=== PATIENT | male | born 1980 | race Caucasian/White ===

== ENCOUNTER 2019-03-29 15:44 | Emergency (ER) | payer OTHER, SELFPAY ==
[2019-03-29 15:48] VITALS: BP 151/103; PULSE 75; RESP 18; TEMP 36.3; O2SAT 99
--- NOTE | 2019-03-29 15:55 | ED.ABDPAIN ---
HPI - Abdominal Pain General Chief Complaint: Abdominal Pain Stated Complaint: severe right abdominal pain, cramps lower back Time Seen by Provider: 03/29/19 15:45 Source: patient and family Mode of arrival: ambulatory Limitations: no limitations History of Present Illness HPI narrative: 39-year-old male nonsmoker and otherwise healthy presents with and a chief complaint of severe right flank pain with radiation into the groin. He states it came on suddenly earlier today and radiates down into his scrotum. He denies any fever chills. He has had no trouble with bowel or bladder. He states there is no provocation or palliation of the pain. He has never had anything like this before. He denies any history of kidney stones. He has had nausea and vomiting associated with the pain. At baseline there is an achy deep pain followed by episodes of very intense burning and stabbing pain MD complaint: flank pain Onset (ago): hour(s) Pain Consistency: intermittent and colicky Location: RLQ and R flank Severity: moderate Quality: cramping, stabbing and aching Radiation: RLQ and R flank Relieving factors: nothing Exacerbating factors: nothing Associated symptoms: nausea and vomiting Related Data Previous Rx's Medication Instructions Recorded clotrimazole 1 % topical solution 1 applictn TOP BID #10 ml 07/18/18 diazepam 10 mg tablet 10 mg PO BEDTIME PRN #2 tab 07/18/18 hydrocodone-acetaminophen 1 tab PO Q4-6H PRN #10 tab 03/29/19 ketorolac 10 mg PO Q6H PRN #14 tab 03/29/19 ondansetron 4 mg PO TID-QID PRN #10 tab 03/29/19 tamsulosin [Flomax] 0.4 mg PO DAILY #10 cap 03/29/19 Allergies Allergy/AdvReac Type Severity Reaction Status Date / Time No Known Drug Allergies Allergy Verified 07/18/18 14:35 Review of Systems Constitutional Denies chills, Denies fever(s), Denies lethargy and Denies weakness Eyes Denies change in vision, Denies eye discharge, Denies irritation and Denies loss of vision ENT Ears, Nose, Mouth, and Throat: Denies change in voice, Denies neck pain and Denies sore throat Cardiovascular Denies chest pain, Denies irregular heart rhythm, Denies lightheadedness, Denies palpitations, Denies dyspnea, Denies dyspnea on exertion and Denies orthopnea Respiratory Denies cough, Denies dyspnea, Denies dyspnea on exertion and Denies wheezing Gastrointestinal Gastrointestinal: Reports abdominal pain, Denies change in bowel habits, Denies diarrhea, Denies nausea and Denies vomiting Genitourinary Denies hematuria, Reports flank pain, Denies urinary incontinence and Denies urinary urgency Musculoskeletal Denies neck pain Integumentary/Breasts Denies pruritus, Denies erythema, Denies rash and Denies wounds Neurologic Denies confusion, Denies loss of vision and Denies weakness Psychiatric Denies anxiety, Denies confusion, Denies depression, Denies homicidal ideation and Denies suicidal ideation Endocrine Denies palpitations Hematologic/Lymphatic Denies easy bruising Allergic/Immunologic Denies wheezing PFSH Medical History Ankle pain (Chronic 2014) Chronic back pain (Chronic 1999) Eczema (Chronic ~1989) Shoulder pain (Chronic 2001) Surgical History Anesthesia (Resolved) History of umbilical hernia repair (Resolved 10/2012) Status post hernia repair Family History Mother Cancer Social History marital status: Smoking Status: Never smoker alcohol intake: current (1-3 A WEEK ) substance use type: does not use Family History Mother Cancer Social History marital status: Smoking Status: Never smoker alcohol intake: current (1-3 A WEEK ) substance use type: does not use Exam Narrative Exam Narrative: GENERAL: 39M appears stated age, very uncomfortable, pacing HEAD: Atraumatic. Normocephalic. No temporal or scalp tenderness. EYES: Pupils equal round and reactive. Extraocular motions intact. No scleral icterus. No injection or drainage. ENT: Nose without bleeding, purulent drainage or septal hematoma. Throat without erythema, tonsillar hypertrophy or exudate. Uvula midline. Airway patent. NECK: Trachea midline. No JVD or lymphadenopathy. Supple, nontender, no meningeal signs. CARDIOVASCULAR: Regular rate and rhythm without murmurs, gallops, or rubs. RESPIRATORY: Clear to auscultation. Breath sounds equal bilaterally. No wheezes, rales, or rhonchi. GASTROINTESTINAL: Abdomen soft, non-tender, nondistended. No hepato-splenomegaly, or palpable masses. No guarding. EXTREMITIES: No clubbing, cyanosis, or edema. No joint tenderness, effusion, or edema noted. BACK: Nontender without deformity or crepitance. No flank tenderness. NEURO: AOx3. SKIN: No rash or erythema. Initial Vital Signs Initial Vital Signs: Vital Signs Temperature 97.3 F L 03/29/19 15:48 Pulse Rate 75 03/29/19 15:48 Respiratory Rate 18 03/29/19 15:48 Blood Pressure 151/103 H 03/29/19 15:48 Pulse Oximetry 99 03/29/19 15:48 Course Orders Ordered: Discontinued Medications Hydrocodone Bitart/Acetaminophen (Vicodin Prepack) 1 bottle MISC SEEINSTR ONE Stop: 03/29/19 18:16 Last Admin: 03/29/19 18:23 Dose: 1 bottle Hydromorphone HCl (Dilaudid) 0.5 mg IV NOW ONE Stop: 03/29/19 16:55 Last Admin: 03/29/19 17:05 Dose: 0.5 mg Sodium Chloride (Normal Saline 0.9%) 1,000 mls @ 1,000 mls/hr IV BOLUS ONE Stop: 03/29/19 17:15 Last Infusion: 03/29/19 17:44 Dose: 0 mls/hr Admin: 03/29/19 16:38 Dose: 1,000 mls/hr Lidocaine HCl 5.1 ml/ Sodium (Chloride) 55.1 mls @ 330.6 mls/hr IV NOW ONE Stop: 03/29/19 16:35 Last Infusion: 03/29/19 17:29 Dose: 0 mls/hr Admin: 03/29/19 17:05 Dose: 330.6 mls/hr Ketorolac Tromethamine (Toradol) 15 mg IV NOW ONE Stop: 03/29/19 16:17 Last Admin: 03/29/19 16:38 Dose: 15 mg Ondansetron HCl (Zofran Odt Prepack) 1 bottle MISC SEEINSTR ONE Stop: 03/29/19 18:16 Last Admin: 03/29/19 18:23 Dose: 1 bottle Vital Signs - 8 hr 03/29/19 15:48 Temperature 97.3 F L Pulse Rate 75 Respiratory Rate 18 Blood Pressure 151/103 H Pulse Oximetry 99 MDM - Abdominal Pain Lab Data Result diagrams: 03/29/19 16:00 03/29/19 16:00 Lab Results 03/29/19 03/29/19 03/29/19 Range/Units 16:00 16:00 16:00 WBC 6.6 (4.5-11.0) X10^3/uL RBC 4.81 (4.5-5.9) X10^6/uL Hgb 14.6 (13.5-17.5) g/dL Hct 42.2 (41-53) % MCV 87.7 (80-100) fL MCH 30.3 (26-34) PG MCHC 34.6 (30-36) % RDW 13.1 (11.6-14.8) % Plt Count 170 (150-400) X10^3/uL Neut % (Auto) 63.5 (50-75) % Lymph % (Auto) 19.5 L (25-40) % [place] % (Auto) 14.4 H (3-14) % Eos % (Auto) 2.3 (2-4) % Baso % (Auto) 0.3 (0-2) % Neut # (Auto) 4200 (7909-1609) /uL Lymph # (Auto) 1300 (7723-4021) /uL [place] # (Auto) 900 (0-900) /uL Eos # (Auto) 200 (0-450) /uL Baso # (Auto) 0 (0-100) /uL PT 10.2 (10.1-12.7) SECONDS INR 0.9 (0.9-1.3) APTT 29 (26.4-36.2) SECONDS Sodium 140 (137-145) mmol/L Potassium 3.5 (3.4-5.1) mmol/L Chloride 104 (98-107) mmol/L Carbon Dioxide 29 (22-32) mmol/L BUN 21 H (9-20) mg/dL Creatinine 0.70 (0.66-1.25) mg/dL Estimated GFR > 60.0 (>60) mL/min BUN/Creatinine Ratio 30.0 H (6-22) Glucose 118 H (70-100) mg/dL Calcium 9.2 (8.4-10.2) mg/dL Total Bilirubin 0.4 (0.2-1.3) mg/dL AST 26 (17-59) IU/L ALT 10 L (21-72) IU/L Alkaline Phosphatase 78 (38-126) U/L Total Protein 7.2 (6.3-8.2) g/dL Albumin 4.4 (3.5-5.0) g/dL Globulin 2.8 (1.7-4.1) g/dL Albumin/Globulin Ratio 1.6 (1.0-2.8) Lipase 69 (23-300) U/L Urine Color Urine Appearance Urine pH Ur Specific [place] Urine Protein Urine Glucose (UA) Urine Ketones Urine Occult Blood Urine Nitrate Urine Bilirubin Urine Urobilinogen Ur Leukocyte Esterase Urine RBC (0-5/HPF) Urine WBC (0-5/HPF) Amorphous Sediment Urine Bacteria (None) Ur Culture Indicated? 03/29/19 Range/Units 17:30 WBC (4.5-11.0) X10^3/uL RBC (4.5-5.9) X10^6/uL Hgb (13.5-17.5) g/dL Hct (41-53) % MCV (80-100) fL MCH (26-34) PG MCHC (30-36) % RDW (11.6-14.8) % Plt Count (150-400) X10^3/uL Neut % (Auto) (50-75) % Lymph % (Auto) (25-40) % [place] % (Auto) (3-14) % Eos % (Auto) (2-4) % Baso % (Auto) (0-2) % Neut # (Auto) (5492-6621) /uL Lymph # (Auto) (4829-0909) /uL [place] # (Auto) (0-900) /uL Eos # (Auto) (0-450) /uL Baso # (Auto) (0-100) /uL PT (10.1-12.7) SECONDS INR (0.9-1.3) APTT (26.4-36.2) SECONDS Sodium (137-145) mmol/L Potassium (3.4-5.1) mmol/L Chloride (98-107) mmol/L Carbon Dioxide (22-32) mmol/L BUN (9-20) mg/dL Creatinine (0.66-1.25) mg/dL Estimated GFR (>60) mL/min BUN/Creatinine Ratio (6-22) Glucose (70-100) mg/dL Calcium (8.4-10.2) mg/dL Total Bilirubin (0.2-1.3) mg/dL AST (17-59) IU/L ALT (21-72) IU/L Alkaline Phosphatase (38-126) U/L Total Protein (6.3-8.2) g/dL Albumin (3.5-5.0) g/dL Globulin (1.7-4.1) g/dL Albumin/Globulin Ratio (1.0-2.8) Lipase (23-300) U/L Urine Color Cancelled Urine Appearance Cancelled Urine pH Cancelled Ur Specific [place] Cancelled Urine Protein Cancelled Urine Glucose (UA) Cancelled Urine Ketones Cancelled Urine Occult Blood Cancelled Urine Nitrate Cancelled Urine Bilirubin Cancelled Urine Urobilinogen Cancelled Ur Leukocyte Esterase Cancelled Urine RBC 5-10/hpf H (0-5/HPF) Urine WBC None seen (0-5/HPF) Amorphous Sediment 1+ Urine Bacteria None seen (None) Ur Culture Indicated? Culture not indicate Point of care testing: Urine Dip Bedside Urine Glucose Negative Bedside Urine Bilirubin - Negative Bedside Urine Ketone +/- 5 Urine Specific [place] 1.020 Bedside Urine Occult Blood +++ Bedside Urine pH 6.5 Bedside Urine Protein +/- 15 Bedside Urine Urobilinogen +/- 1mg Bedside Urine Nitrite - Negative Bedside Urine Leukocytes - Negative Esterase Imaging Data CT scan - abdomen: Radiologist's impression: [address] [id number] [address] Scan Report Signed Patient: Luigi Lovett KMR#: [id number] : 1980Acct:[id number] Age/Sex: 39 / MDate of Service: 03/29/19 Loc: ED Accession Number: [id number] Procedure: CT kidney ureter bladder (KUB) Ordering Provider: Jose Lynn D.O. PROCEDURE: CT KIDNEY URETER BLADDER (KUB) INDICATIONS: severe R flank and groin pain TECHNIQUE: Noncontrast 5 mm thick sections acquired from the diaphragms to the symphysis. 5 mm thick coronal and sagittal reformats were then performed. For radiation dose reduction, the following was used: automated exposure control, adjustment of mA and/or kV according to patient size. COMPARISON: None. FINDINGS: Image quality: Diagnostic. Lung bases: Lung bases are clear. Heart size is normal. Urinary system: There is a 5 x 5 x 4 mm calculus identified at the vesicoureteral junction on the right with corresponding moderate hydroureter and mild right-sided hydronephrosis. No additional right nephroureteral lithiasis is evident. There is a small (3-4 mm) calculus evident within the left mid kidney. No hydronephrosis of the left kidney or hydroureter is evident. No left ureteral calculi are present. No bladder calculi are appreciated. Other solid organs: Liver is normal in size. Gallbladder is not enlarged or inflamed. Pancreas is normal in contours. Spleen is normal in size. No adrenal nodules. Peritoneum and bowel: Unenhanced bowel loops demonstrate normal wall thickness and caliber. No free fluid or air. No loculated fluid collections are evident. Moderate residual stool seen within the colon. The imaged portions of the appendix are within normal limits. The Nodes and vessels: No retroperitoneal or mesenteric adenopathy by size criteria. Aorta and inferior vena cava are normal in caliber. Abdominal wall: No ventral hernias. Other pelvic soft tissues: No free pelvic fluid. Small bilateral fat-containing inguinal hernias appear to be present. No pelvic adenopathy is evident. No free fluid or loculated fluid collections are identified. Bones: No suspicious bony lesions. No vertebral body compression fractures. IMPRESSION: 1. At least partially obstructing distal right ureteral calculus with corresponding mild to moderate hydroureter and hydronephrosis. 2. Nonobstructing left nephrolithiasis. No left-sided hydronephrosis. 3. Small bilateral fat-containing inguinal hernias. 4. No bowel obstruction. Dictated by: Lennox Carbajal M.D. on 03/29/2019 at 16:56 Approved by: Lennox Carbajal M.D. on 03/29/2019 at 16:59 Discharge Plan Departure Patient Disposition: Home Clinical Impression: Calculus of kidney Discharge Date/Time: 03/29/19 18:27 Interventions: ED Discharge Assessment Last Done: 03/29/19 18:27 Instructions: DI for Kidney Stones Activity Restrictions/Additional Instructions: *You have been diagnosed with [acute right-sided kidney stone] *What to do: *Take medications as directed *Follow up with your primary care provider in 2-3 days, call for an appointment. Let them know you were seen in the Emergency Department and that we ask that you be seen in follow up *Return to ER if you should have any new, worsening or concerning symptoms Prescriptions: New hydrocodone-acetaminophen 5-325 mg tablet 1 tab PO Q4-6H PRN (Reason: pain) Qty: 10 RF: 0 ketorolac 10 mg tablet 10 mg PO Q6H PRN (Reason: pain) Qty: 14 RF: 0 tamsulosin [Flomax] 0.4 mg capsule 0.4 mg PO DAILY Qty: 10 RF: 0 ondansetron 4 mg tablet,disintegrating 4 mg PO TID-QID PRN (Reason: nausea and vomiting) Qty: 10 RF: 0 No Action diazepam [Valium] 10 mg tablet 10 mg PO BEDTIME PRN (Reason: anxiety) Qty: 2 RF: 0 clotrimazole 1 % solution 1 applictn TOP BID Qty: 10 RF: 0 Referrals: Feliberto Rucker MD [Primary Care Provider] - Mohsen Lopez MD [Non-Staff] -
[2019-03-29 16:10] LABS: Add Manual Diff / Slide Review NO; Basophils Absolute Auto 0 /uL (0-100); Basophils Percent Auto 0.3 % (0-2); Eosinophils Absolute Auto 200 /uL (0-450); Eosinophils Percent Auto 2.3 % (2-4); Hematocrit 42.2 % (41-53); Hemoglobin 14.6 g/dL (13.5-17.5); Lymphocytes Absolute Auto 1300 /uL (1100-4500); Lymphocytes Percent Auto 19.5 % (25-40); Mean Corpuscular HGB Conc 34.6 % (30-36); Mean Corpuscular Hemoglobin 30.3 PG (26-34); Mean Corpuscular Volume 87.7 fL (80-100); Monocytes Absolute Auto 900 /uL (0-900); Monocytes Percent Auto 14.4 % (3-14); Neutrophils Absolute Auto 4200 /uL (1500-7000); Neutrophils Percent Auto 63.5 % (50-75); Platelet Count 170 X10^3/uL (150-400); Red Blood Cell Count 4.81 X10^6/uL (4.5-5.9); Red Cell Distribution Width 13.1 % (11.6-14.8); White Blood Cell Count 6.6 X10^3/uL (4.5-11.0)
[2019-03-29 16:18] LABS: INR 0.9 (0.9-1.3); Prothrombin Time 10.2 SECONDS (10.1-12.7)
[2019-03-29 16:21] LABS: PTT Partial Thromboplastin Tim 29 SECONDS (26.4-36.2)
[2019-03-29 16:26] LABS: Alanine Aminotransferase 10 IU/L (21-72); Albumin 4.4 g/dL (3.5-5.0); Albumin Globulin Ratio 1.6 (1.0-2.8); Alkaline Phosphatase 78 U/L (38-126); Aspartate Aminotransferase 26 IU/L (17-59); Bilirubin Total 0.4 mg/dL (0.2-1.3); Blood Urea Nitrogen 21 mg/dL (9-20); Calcium 9.2 mg/dL (8.4-10.2); Carbon Dioxide 29 mmol/L (22-32); Chloride 104 mmol/L (98-107); Estimated Glomerular Filt Rate > 60.0 mL/min (>60); Globulin 2.8 g/dL (1.7-4.1); Glucose 118 mg/dL (70-100); HEMOLYSIS 17 (0-50); Lipase 69 U/L (23-300); Potassium 3.5 mmol/L (3.4-5.1); Sodium 140 mmol/L (137-145); Total Protein 7.2 g/dL (6.3-8.2)
--- NOTE | 2019-03-29 16:34 | DI.CT.S_ITS ---
PROCEDURE: CT KIDNEY URETER BLADDER (KUB) INDICATIONS: severe R flank and groin pain TECHNIQUE: Noncontrast 5 mm thick sections acquired from the diaphragms to the symphysis. 5 mm thick coronal and sagittal reformats were then performed. For radiation dose reduction, the following was used: automated exposure control, adjustment of mA and/or kV according to patient size. COMPARISON: None. FINDINGS: Image quality: Diagnostic. Lung bases: Lung bases are clear. Heart size is normal. Urinary system: There is a 5 x 5 x 4 mm calculus identified at the vesicoureteral junction on the right with corresponding moderate hydroureter and mild right-sided hydronephrosis. No additional right nephroureteral lithiasis is evident. There is a small (3-4 mm) calculus evident within the left mid kidney. No hydronephrosis of the left kidney or hydroureter is evident. No left ureteral calculi are present. No bladder calculi are appreciated. Other solid organs: Liver is normal in size. Gallbladder is not enlarged or inflamed. Pancreas is normal in contours. Spleen is normal in size. No adrenal nodules. Peritoneum and bowel: Unenhanced bowel loops demonstrate normal wall thickness and caliber. No free fluid or air. No loculated fluid collections are evident. Moderate residual stool seen within the colon. The imaged portions of the appendix are within normal limits. The Nodes and vessels: No retroperitoneal or mesenteric adenopathy by size criteria. Aorta and inferior vena cava are normal in caliber. Abdominal wall: No ventral hernias. Other pelvic soft tissues: No free pelvic fluid. Small bilateral fat-containing inguinal hernias appear to be present. No pelvic adenopathy is evident. No free fluid or loculated fluid collections are identified. Bones: No suspicious bony lesions. No vertebral body compression fractures. IMPRESSION: 1. At least partially obstructing distal right ureteral calculus with corresponding mild to moderate hydroureter and hydronephrosis. 2. Nonobstructing left nephrolithiasis. No left-sided hydronephrosis. 3. Small bilateral fat-containing inguinal hernias. 4. No bowel obstruction. Dictated by: Lennox Carbajal M.D. on 03/29/2019 at 16:56 Approved by: Lennox Carbajal M.D. on 03/29/2019 at 16:59
[2019-03-29] MEDS: SODIUM CHLORIDE 0.9% 1,000 ML 1000 ML IV (16:38)
[2019-03-29] MEDS: KETOROLAC 60 MG/2 ML VIAL 15 MG IV (16:38)
--- NOTE | 2019-03-29 17:03 | ED_ITS ---
HPI - Abdominal Pain General Chief Complaint: Abdominal Pain Stated Complaint: severe right abdominal pain, cramps lower back Time Seen by Provider: 03/29/19 15:45 Source: patient and family Mode of arrival: ambulatory Limitations: no limitations History of Present Illness HPI narrative: 39-year-old male nonsmoker and otherwise healthy presents with and a chief complaint of severe right flank pain with radiation into the groin. He states it came on suddenly earlier today and radiates down into his scrotum. He denies any fever chills. He has had no trouble with bowel or bladder. He states there is no provocation or palliation of the pain. He has never had anything like this before. He denies any history of kidney stones. He has had nausea and vomiting associated with the pain. At baseline there is an achy deep pain followed by episodes of very intense burning and stabbing pain MD complaint: flank pain Onset (ago): hour(s) Pain Consistency: intermittent and colicky Location: RLQ and R flank Severity: moderate Quality: cramping, stabbing and aching Radiation: RLQ and R flank Relieving factors: nothing Exacerbating factors: nothing Associated symptoms: nausea and vomiting Related Data Previous Rx's Medication Instructions Recorded clotrimazole 1 % topical solution 1 applictn TOP BID #10 ml 07/18/18 diazepam 10 mg tablet 10 mg PO BEDTIME PRN #2 tab 07/18/18 hydrocodone-acetaminophen 1 tab PO Q4-6H PRN #10 tab 03/29/19 ketorolac 10 mg PO Q6H PRN #14 tab 03/29/19 ondansetron 4 mg PO TID-QID PRN #10 tab 03/29/19 tamsulosin [Flomax] 0.4 mg PO DAILY #10 cap 03/29/19 Allergies Allergy/AdvReac Type Severity Reaction Status Date / Time No Known Drug Allergies Allergy Verified 07/18/18 14:35 Review of Systems Constitutional Denies chills, Denies fever(s), Denies lethargy and Denies weakness Eyes Denies change in vision, Denies eye discharge, Denies irritation and Denies loss of vision ENT Ears, Nose, Mouth, and Throat: Denies change in voice, Denies neck pain and Denies sore throat Cardiovascular Denies chest pain, Denies irregular heart rhythm, Denies lightheadedness, Denies palpitations, Denies dyspnea, Denies dyspnea on exertion and Denies orthopnea Respiratory Denies cough, Denies dyspnea, Denies dyspnea on exertion and Denies wheezing Gastrointestinal Gastrointestinal: Reports abdominal pain, Denies change in bowel habits, Denies diarrhea, Denies nausea and Denies vomiting Genitourinary Denies hematuria, Reports flank pain, Denies urinary incontinence and Denies urinary urgency Musculoskeletal Denies neck pain Integumentary/Breasts Denies pruritus, Denies erythema, Denies rash and Denies wounds Neurologic Denies confusion, Denies loss of vision and Denies weakness Psychiatric Denies anxiety, Denies confusion, Denies depression, Denies homicidal ideation and Denies suicidal ideation Endocrine Denies palpitations Hematologic/Lymphatic Denies easy bruising Allergic/Immunologic Denies wheezing PFSH Medical History Ankle pain (Chronic 2014) Chronic back pain (Chronic 1999) Eczema (Chronic ~1989) Shoulder pain (Chronic 2001) Surgical History Anesthesia (Resolved) History of umbilical hernia repair (Resolved 10/2012) Status post hernia repair Family History Mother Cancer Social History marital status: Smoking Status: Never smoker alcohol intake: current (1-3 A WEEK ) substance use type: does not use Family History Mother Cancer Social History marital status: Smoking Status: Never smoker alcohol intake: current (1-3 A WEEK ) substance use type: does not use Exam Narrative Exam Narrative: GENERAL: 39M appears stated age, very uncomfortable, pacing HEAD: Atraumatic. Normocephalic. No temporal or scalp tenderness. EYES: Pupils equal round and reactive. Extraocular motions intact. No scleral icterus. No injection or drainage. ENT: Nose without bleeding, purulent drainage or septal hematoma. Throat without erythema, tonsillar hypertrophy or exudate. Uvula midline. Airway patent. NECK: Trachea midline. No JVD or lymphadenopathy. Supple, nontender, no meningeal signs. CARDIOVASCULAR: Regular rate and rhythm without murmurs, gallops, or rubs. RESPIRATORY: Clear to auscultation. Breath sounds equal bilaterally. No wheezes, rales, or rhonchi. GASTROINTESTINAL: Abdomen soft, non-tender, nondistended. No hepato- splenomegaly, or palpable masses. No guarding. EXTREMITIES: No clubbing, cyanosis, or edema. No joint tenderness, effusion, or edema noted. BACK: Nontender without deformity or crepitance. No flank tenderness. NEURO: AOx3. SKIN: No rash or erythema. Initial Vital Signs Initial Vital Signs: Vital Signs Temperature 97.3 F L 03/29/19 15:48 Pulse Rate 75 03/29/19 15:48 Respiratory Rate 18 03/29/19 15:48 Blood Pressure 151/103 H 03/29/19 15:48 Pulse Oximetry 99 03/29/19 15:48 Course Orders Ordered: Discontinued Medications Hydrocodone Bitart/Acetaminophen (Vicodin Prepack) 1 bottle MISC SEEINSTR ONE Stop: 03/29/19 18:16 Last Admin: 03/29/19 18:23 Dose: 1 bottle Hydromorphone HCl (Dilaudid) 0.5 mg IV NOW ONE Stop: 03/29/19 16:55 Last Admin: 03/29/19 17:05 Dose: 0.5 mg Sodium Chloride (Normal Saline 0.9%) 1,000 mls @ 1,000 mls/hr IV BOLUS ONE Stop: 03/29/19 17:15 Last Infusion: 03/29/19 17:44 Dose: 0 mls/hr Admin: 03/29/19 16:38 Dose: 1,000 mls/hr Lidocaine HCl 5.1 ml/ Sodium (Chloride) 55.1 mls @ 330.6 mls/hr IV NOW ONE Stop: 03/29/19 16:35 Last Infusion: 03/29/19 17:29 Dose: 0 mls/hr Admin: 03/29/19 17:05 Dose: 330.6 mls/hr Ketorolac Tromethamine (Toradol) 15 mg IV NOW ONE Stop: 03/29/19 16:17 Last Admin: 03/29/19 16:38 Dose: 15 mg Ondansetron HCl (Zofran Odt Prepack) 1 bottle MISC SEEINSTR ONE Stop: 03/29/19 18:16 Last Admin: 03/29/19 18:23 Dose: 1 bottle Vital Signs - 8 hr 03/29/19 15:48 Temperature 97.3 F L Pulse Rate 75 Respiratory Rate 18 Blood Pressure 151/103 H Pulse Oximetry 99 MDM - Abdominal Pain Lab Data Result diagrams: 03/29/19 16:00 03/29/19 16:00 Lab Results 03/29/19 03/29/19 03/29/19 Range/Units 16:00 16:00 16:00 WBC 6.6 (4.5-11.0) X10^3/uL RBC 4.81 (4.5-5.9) X10^6/uL Hgb 14.6 (13.5-17.5) g/dL Hct 42.2 (41-53) % MCV 87.7 (80-100) fL MCH 30.3 (26-34) PG MCHC 34.6 (30-36) % RDW 13.1 (11.6-14.8) % Plt Count 170 (150-400) X10^3/uL Neut % (Auto) 63.5 (50-75) % Lymph % (Auto) 19.5 L (25-40) % [place] % (Auto) 14.4 H (3-14) % Eos % (Auto) 2.3 (2-4) % Baso % (Auto) 0.3 (0-2) % Neut # (Auto) 4200 (7965-1593) /uL Lymph # (Auto) 1300 (6523-9613) /uL [place] # (Auto) 900 (0-900) /uL Eos # (Auto) 200 (0-450) /uL Baso # (Auto) 0 (0-100) /uL PT 10.2 (10.1-12.7) SECONDS INR 0.9 (0.9-1.3) APTT 29 (26.4-36.2) SECONDS Sodium 140 (137-145) mmol/L Potassium 3.5 (3.4-5.1) mmol/L Chloride 104 (98-107) mmol/L Carbon Dioxide 29 (22-32) mmol/L BUN 21 H (9-20) mg/dL Creatinine 0.70 (0.66-1.25) mg/dL Estimated GFR > 60.0 (>60) mL/min BUN/Creatinine Ratio 30.0 H (6-22) Glucose 118 H (70-100) mg/dL Calcium 9.2 (8.4-10.2) mg/dL Total Bilirubin 0.4 (0.2-1.3) mg/dL AST 26 (17-59) IU/L ALT 10 L (21-72) IU/L Alkaline Phosphatase 78 (38-126) U/L Total Protein 7.2 (6.3-8.2) g/dL Albumin 4.4 (3.5-5.0) g/dL Globulin 2.8 (1.7-4.1) g/dL Albumin/Globulin Ratio 1.6 (1.0-2.8) Lipase 69 (23-300) U/L Urine Color Urine Appearance Urine pH Ur Specific [place] Urine Protein Urine Glucose (UA) Urine Ketones Urine Occult Blood Urine Nitrate Urine Bilirubin Urine Urobilinogen Ur Leukocyte Esterase Urine RBC (0-5/HPF) Urine WBC (0-5/HPF) Amorphous Sediment Urine Bacteria (None) Ur Culture Indicated? 03/29/19 Range/Units 17:30 WBC (4.5-11.0) X10^3/uL RBC (4.5-5.9) X10^6/uL Hgb (13.5-17.5) g/dL Hct (41-53) % MCV (80-100) fL MCH (26-34) PG MCHC (30-36) % RDW (11.6-14.8) % Plt Count (150-400) X10^3/uL Neut % (Auto) (50-75) % Lymph % (Auto) (25-40) % [place] % (Auto) (3-14) % Eos % (Auto) (2-4) % Baso % (Auto) (0-2) % Neut # (Auto) (1005-4044) /uL Lymph # (Auto) (3262-7194) /uL [place] # (Auto) (0-900) /uL Eos # (Auto) (0-450) /uL Baso # (Auto) (0-100) /uL PT (10.1-12.7) SECONDS INR (0.9-1.3) APTT (26.4-36.2) SECONDS Sodium (137-145) mmol/L Potassium (3.4-5.1) mmol/L Chloride (98-107) mmol/L Carbon Dioxide (22-32) mmol/L BUN (9-20) mg/dL Creatinine (0.66-1.25) mg/dL Estimated GFR (>60) mL/min BUN/Creatinine Ratio (6-22) Glucose (70-100) mg/dL Calcium (8.4-10.2) mg/dL Total Bilirubin (0.2-1.3) mg/dL AST (17-59) IU/L ALT (21-72) IU/L Alkaline Phosphatase (38-126) U/L Total Protein (6.3-8.2) g/dL Albumin (3.5-5.0) g/dL Globulin (1.7-4.1) g/dL Albumin/Globulin Ratio (1.0-2.8) Lipase (23-300) U/L Urine Color Cancelled Urine Appearance Cancelled Urine pH Cancelled Ur Specific [place] Cancelled Urine Protein Cancelled Urine Glucose (UA) Cancelled Urine Ketones Cancelled Urine Occult Blood Cancelled Urine Nitrate Cancelled Urine Bilirubin Cancelled Urine Urobilinogen Cancelled Ur Leukocyte Esterase Cancelled Urine RBC 5-10/hpf H (0-5/HPF) Urine WBC None seen (0-5/HPF) Amorphous Sediment 1+ Urine Bacteria None seen (None) Ur Culture Indicated? Culture not indicate Point of care testing: Urine Dip Bedside Urine Glucose Negative Bedside Urine Bilirubin - Negative Bedside Urine Ketone +/- 5 Urine Specific [place] 1.020 Bedside Urine Occult Blood +++ Bedside Urine pH 6.5 Bedside Urine Protein +/- 15 Bedside Urine Urobilinogen +/- 1mg Bedside Urine Nitrite - Negative Bedside Urine Leukocytes - Negative Esterase Imaging Data CT scan - abdomen: Radiologist's impression: [address] [address] [address] Scan Report Signed Patient: Luigi Lovett KMR#: [id number] : 1980Acct:[id number] Age/Sex: 39 / MDate of Service: 03/29/19 Loc: ED Accession Number: [id number] Procedure: CT kidney ureter bladder (KUB) Ordering Provider: Jose Lynn D.O. PROCEDURE: CT KIDNEY URETER BLADDER (KUB) INDICATIONS: severe R flank and groin pain TECHNIQUE: Noncontrast 5 mm thick sections acquired from the diaphragms to the symphysis. 5 mm thick coronal and sagittal reformats were then performed. For radiation dose reduction, the following was used: automated exposure control, adjustment of mA and/or kV according to patient size. COMPARISON: None. FINDINGS: Image quality: Diagnostic. Lung bases: Lung bases are clear. Heart size is normal. Urinary system: There is a 5 x 5 x 4 mm calculus identified at the vesicoureteral junction on the right with corresponding moderate hydroureter and mild right- sided hydronephrosis. No additional right nephroureteral lithiasis is evident. There is a small (3-4 mm) calculus evident within the left mid kidney. No hydronephrosis of the left kidney or hydroureter is evident. No left ureteral calculi are present. No bladder calculi are appreciated. Other solid organs: Liver is normal in size. Gallbladder is not enlarged or inflamed. Pancreas is normal in contours. Spleen is normal in size. No adrenal nodules. Peritoneum and bowel: Unenhanced bowel loops demonstrate normal wall thickness and caliber. No free fluid or air. No loculated fluid collections are evident. Moderate residual stool seen within the colon. The imaged portions of the appendix are within normal limits. The Nodes and vessels: No retroperitoneal or mesenteric adenopathy by size criteria. Aorta and inferior vena cava are normal in caliber. Abdominal wall: No ventral hernias. Other pelvic soft tissues: No free pelvic fluid. Small bilateral fat-containing inguinal hernias appear to be present. No pelvic adenopathy is evident. No free fluid or loculated fluid collections are identified. Bones: No suspicious bony lesions. No vertebral body compression fractures. IMPRESSION: 1. At least partially obstructing distal right ureteral calculus with corresponding mild to moderate hydroureter and hydronephrosis. 2. Nonobstructing left nephrolithiasis. No left-sided hydronephrosis. 3. Small bilateral fat-containing inguinal hernias. 4. No bowel obstruction. Dictated by: Lennox aCrbajal M.D. on 03/29/2019 at 16:56 Approved by: Lennox Carbajal M.D. on 03/29/2019 at 16:59 Discharge Plan Departure Patient Disposition: Home Clinical Impression: Calculus of kidney Discharge Date/Time: 03/29/19 18:27 Interventions: ED Discharge Assessment Last Done: 03/29/19 18:27 Instructions: DI for Kidney Stones Activity Restrictions/Additional Instructions: *You have been diagnosed with [acute right-sided kidney stone] *What to do: *Take medications as directed *Follow up with your primary care provider in 2-3 days, call for an appointment. Let them know you were seen in the Emergency Department and that we ask that you be seen in follow up *Return to ER if you should have any new, worsening or concerning symptoms Prescriptions: New hydrocodone-acetaminophen 5-325 mg tablet 1 tab PO Q4-6H PRN (Reason: pain) Qty: 10 RF: 0 ketorolac 10 mg tablet 10 mg PO Q6H PRN (Reason: pain) Qty: 14 RF: 0 tamsulosin [Flomax] 0.4 mg capsule 0.4 mg PO DAILY Qty: 10 RF: 0 ondansetron 4 mg tablet,disintegrating 4 mg PO TID-QID PRN (Reason: nausea and vomiting) Qty: 10 RF: 0 No Action diazepam [Valium] 10 mg tablet 10 mg PO BEDTIME PRN (Reason: anxiety) Qty: 2 RF: 0 clotrimazole 1 % solution 1 applictn TOP BID Qty: 10 RF: 0 Referrals: Feliberto Rucker MD [Primary Care Provider] - Mohsen Lopez MD [Non-Staff] -
[2019-03-29] MEDS: HYDROMORPHONE 0.5 MG INJ IV (17:05)
[2019-03-29] MEDS: LIDOCAINE 2% 5.1 ML in SODIUM CHLORIDE 0.9% 50 ML 330.6 ML IV (17:05)
[2019-03-29] MEDS: HYDROCODONE/ACET 5/325 PREPACK 1 BOTTLE MISC (18:23)
[2019-03-29] MEDS: ONDANSETRON 4 MG ODT PREPACK 1 BOTTLE MISC (18:23)
[2019-03-29 18:27] VITALS: PULSE 75; RESP 16
[2019-03-29 20:03] LABS: Bacteria Urine None Seen; WBC Urine None Seen (0-5/HPF)
[2019-03-29 20:24] LABS: Amorphous Sediment Urine 1+; RBC Urine 5-10/HPF (0-5/HPF)
== END 2019-03-29 18:27 | disposition home or self-care (01) ==
PROVIDERS: Internal Medicine; Emergency Provider Emergency Medicine; PCP Family Medicine
DX: N20.0 Calculus of kidney (principal)
CPT/HCPCS: 36591; 74176; 80053; 81003; 81015; 83690; 85025; 85610; 85730; 87086; 96365; 96375; 99283; 99284; J1170; J1885

== ENCOUNTER 2019-03-30 01:39 | Emergency (ER) | payer OTHER, SELFPAY ==
--- NOTE | 2019-03-30 01:45 | ED_ITS ---
HPI - General Adult General Chief complaint: Urogenital-Male Stated complaint: kidney stones Time Seen by Provider: 03/30/19 01:43 Source: patient Mode of arrival: ambulatory Limitations: no limitations History of Present Illness HPI narrative: 39-year-old male here for evaluation of right-sided renal stone pain. Patient states that his symptoms started yesterday. He was seen here in the emergency department yesterday. Was diagnosed with a right-sided renal colic. Was sent home with pain medication. Returns this evening for continued pain. He states that it has moved lower into his right side of his abdomen. Has had vomiting. His medications at home have not been treating his symptoms. He denies any urinary symptoms. He is still urinating. No fevers. Related Data Previous Rx's Medication Instructions Recorded clotrimazole 1 % topical solution 1 applictn TOP BID #10 ml 07/18/18 diazepam 10 mg tablet 10 mg PO BEDTIME PRN #2 tab 07/18/18 hydrocodone-acetaminophen 1 tab PO Q4-6H PRN #10 tab 03/29/19 ketorolac 10 mg PO Q6H PRN #14 tab 03/29/19 ondansetron 4 mg PO TID-QID PRN #10 tab 03/29/19 tamsulosin [Flomax] 0.4 mg PO DAILY #10 cap 03/29/19 Allergies Allergy/AdvReac Type Severity Reaction Status Date / Time No Known Drug Allergies Allergy Verified 07/18/18 14:35 Review of Systems Constitutional Denies fever(s) Cardiovascular Denies chest pain and Denies dyspnea Respiratory Denies dyspnea Gastrointestinal Gastrointestinal: Reports abdominal pain and Reports nausea Genitourinary Denies dysuria and Reports urinary frequency Musculoskeletal Denies myalgias and Denies arthralgias Integumentary/Breasts Denies rash Hematologic/Lymphatic Denies easy bleeding and Denies easy bruising [facility] Medical History Ankle pain (Chronic 2014) Chronic back pain (Chronic 1999) Eczema (Chronic ~1989) Shoulder pain (Chronic 2001) Social History marital status: Smoking Status: Never smoker alcohol intake: current (1-3 A WEEK ) substance use type: does not use Exam Initial Vital Signs Initial Vital Signs: Vital Signs Temperature 98.4 F 03/30/19 02:01 Pulse Rate 73 03/30/19 02:01 Respiratory Rate 20 03/30/19 02:01 Blood Pressure 121/63 03/30/19 02:01 Pulse Oximetry 100 03/30/19 02:01 Const General: cooperative, well developed and well groomed Orientation: alert, awake and oriented x3 HENMT Head: normal to inspection and normocephalic Resp Effort & Inspection: normal respiratory effort Cardio Rate: regular rate GI Inspection: non-distended Skin Lesions: no lesions Rashes: no rashes Neuro General: alert and awake Cognition: normal cognition Speech: speech normal Extrem General: normal to inspection Psych Appearance: grossly normal and well kempt Course Orders Ordered: ED Orders 03/30/19 01:56 Basic Metabolic Panel Stat Complete Blood Count AUTO DIFF Stat 03/30/19 03:15 Urine Microscopic Stat Discontinued Medications Hydromorphone HCl (Dilaudid) 1 mg IV NOW ONE Stop: 03/30/19 01:49 Last Admin: 03/30/19 02:00 Dose: 1 mg Hydromorphone HCl (Dilaudid) 1 mg IV NOW ONE Stop: 03/30/19 02:11 Last Admin: 03/30/19 02:13 Dose: 1 mg Hydromorphone HCl (Dilaudid) 0.5 mg IV NOW ONE Stop: 03/30/19 03:43 Last Admin: 03/30/19 03:51 Dose: 0.5 mg Ketorolac Tromethamine (Toradol) 15 mg IV NOW ONE Stop: 03/30/19 01:49 Last Admin: 03/30/19 02:00 Dose: 15 mg Vital Signs - 8 hr 03/30/19 02:01 03/30/19 03:00 Temperature 98.4 F Pulse Rate 73 78 Respiratory Rate 20 16 Blood Pressure 121/63 Blood Pressure [Right Arm] 118/57 L Pulse Oximetry 100 97 Medical Decision Making Lab Data Lab results reviewed: Yes I reviewed the patient's lab results. Result diagrams: 03/30/19 01:56 03/30/19 01:56 Lab Results 03/30/19 03/30/19 03/30/19 Range/Units 01:56 01:56 03:15 WBC 8.7 (4.5-11.0) X10^3/uL RBC 4.76 (4.5-5.9) X10^6/uL Hgb 14.5 (13.5-17.5) g/dL Hct 41.7 (41-53) % MCV 87.6 (80-100) fL MCH 30.5 (26-34) PG MCHC 34.8 (30-36) % RDW 13.2 (11.6-14.8) % Plt Count 168 (150-400) X10^3/uL Neut % (Auto) 74.5 (50-75) % Lymph % (Auto) 13.7 L (25-40) % [place] % (Auto) 11.4 (3-14) % Eos % (Auto) 0.3 L (2-4) % Baso % (Auto) 0.1 (0-2) % Neut # (Auto) 6500 (1577-5850) /uL Lymph # (Auto) 1200 (4530-0772) /uL [place] # (Auto) 1000 H (0-900) /uL Eos # (Auto) 0 (0-450) /uL Baso # (Auto) 0 (0-100) /uL Sodium 137 (137-145) mmol/L Potassium 3.8 (3.4-5.1) mmol/L Chloride 102 (98-107) mmol/L Carbon Dioxide 25 (22-32) mmol/L BUN 17 (9-20) mg/dL Creatinine 0.90 (0.66-1.25) mg/dL Estimated GFR > 60.0 (>60) mL/min BUN/Creatinine Ratio 18.9 (6-22) Glucose 138 H (70-100) mg/dL Calcium 9.7 (8.4-10.2) mg/dL Urine RBC 0-1/hpf (0-5/HPF) Urine WBC None seen (0-5/HPF) Urine Bacteria None seen (None) Ur Culture Indicated? Cult not indicated Urine Dip Bedside Urine Glucose Negative Bedside Urine Bilirubin - Negative Bedside Urine Ketone + 15 Urine Specific [place] 1.015 Bedside Urine Occult Blood + Bedside Urine pH 8.0 Bedside Urine Protein - Negative Bedside Urine Urobilinogen - Negative Bedside Urine Nitrite - Negative Bedside Urine Leukocytes - Negative Esterase Point of care testing: Urine Dip Bedside Urine Glucose Negative Bedside Urine Bilirubin - Negative Bedside Urine Ketone + 15 Urine Specific [place] 1.015 Bedside Urine Occult Blood + Bedside Urine pH 8.0 Bedside Urine Protein - Negative Bedside Urine Urobilinogen - Negative Bedside Urine Nitrite - Negative Bedside Urine Leukocytes - Negative Esterase MDM Narrative Medical decision making narrative: Patient's creatinine is unchanged. No signs of infection. He has a known right-sided distal renal stone. I suspect this is the cause of his symptoms. Hold on any further radiologic studies for now. Patient received multiple doses of pain medication which did bring his symptoms somewhat more under control. He has pain medication at home prescribed from his last visit here in the emergency department. We did discuss potentially taking more this medication. He has only been taking 1 tablet since he was discharged. Will hold on any urologic consultation for now. He was given return precautions and follow-up instructions. With he and his expressed understa nding and agreement with plan. Discharge Plan Departure Patient Disposition: Home Clinical Impression: Renal colic on right side Instructions: Kidney Stones -- Adult Activity Restrictions/Additional Instructions: Continue to take the medications as we discussed. Return to the emergency department for any fevers, worsening pain, inability to urinate, or any other concerning symptoms Prescriptions: No Action diazepam [Valium] 10 mg tablet 10 mg PO BEDTIME PRN (Reason: anxiety) Qty: 2 RF: 0 clotrimazole 1 % solution 1 applictn TOP BID Qty: 10 RF: 0 hydrocodone-acetaminophen 5-325 mg tablet 1 tab PO Q4-6H PRN (Reason: pain) Qty: 10 RF: 0 ketorolac 10 mg tablet 10 mg PO Q6H PRN (Reason: pain) Qty: 14 RF: 0 tamsulosin [Flomax] 0.4 mg capsule 0.4 mg PO DAILY Qty: 10 RF: 0 ondansetron 4 mg tablet,disintegrating 4 mg PO TID-QID PRN (Reason: nausea and vomiting) Qty: 10 RF: 0 Referrals: Feliberto Rucker MD [Primary Care Provider] -
[2019-03-30] MEDS: KETOROLAC 60 MG/2 ML VIAL 15 MG IV (02:00)
[2019-03-30] MEDS: HYDROMORPHONE 1 MG INJ IV ×2 (02:00→02:13)
[2019-03-30 02:01] VITALS: BP 121/63; PULSE 73; RESP 20; TEMP 36.9; O2SAT 100; BMI 21.5
[2019-03-30 02:12] LABS: Add Manual Diff / Slide Review NO; Basophils Absolute Auto 0 /uL (0-100); Basophils Percent Auto 0.1 % (0-2); Eosinophils Absolute Auto 0 /uL (0-450); Eosinophils Percent Auto 0.3 % (2-4); Hematocrit 41.7 % (41-53); Hemoglobin 14.5 g/dL (13.5-17.5); Lymphocytes Absolute Auto 1200 /uL (1100-4500); Lymphocytes Percent Auto 13.7 % (25-40); Mean Corpuscular HGB Conc 34.8 % (30-36); Mean Corpuscular Hemoglobin 30.5 PG (26-34); Mean Corpuscular Volume 87.6 fL (80-100); Monocytes Absolute Auto 1000 /uL (0-900); Monocytes Percent Auto 11.4 % (3-14); Neutrophils Absolute Auto 6500 /uL (1500-7000); Neutrophils Percent Auto 74.5 % (50-75); Platelet Count 168 X10^3/uL (150-400); Red Blood Cell Count 4.76 X10^6/uL (4.5-5.9); Red Cell Distribution Width 13.2 % (11.6-14.8); White Blood Cell Count 8.7 X10^3/uL (4.5-11.0)
[2019-03-30 02:14] LABS: BUN Creatinine Ratio 18.9 (6-22); Blood Urea Nitrogen 17 mg/dL (9-20); Calcium 9.7 mg/dL (8.4-10.2); Carbon Dioxide 25 mmol/L (22-32); Chloride 102 mmol/L (98-107); Estimated Glomerular Filt Rate > 60.0 mL/min (>60); Glucose 138 mg/dL (70-100); HEMOLYSIS < 15 (0-50); Potassium 3.8 mmol/L (3.4-5.1); Sodium 137 mmol/L (137-145)
[2019-03-30 03:00] VITALS: BP 118/57; PULSE 78; RESP 16; O2SAT 97
[2019-03-30 03:24] LABS: Bacteria Urine None Seen; WBC Urine None Seen (0-5/HPF)
[2019-03-30 03:40] LABS: Culture Indicated Urine Cult Not Indicated; RBC Urine 0-1/HPF (0-5/HPF)
[2019-03-30] MEDS: HYDROMORPHONE 0.5 MG INJ IV (03:51)
[2019-03-30 04:00] VITALS: BP 117/67; PULSE 70; RESP 14; O2SAT 100
== END 2019-03-30 04:01 | disposition home or self-care (01) ==
PROVIDERS: Emergency Provider Emergency Medicine; PCP Family Medicine
DX: N23 Unspecified renal colic (principal)
CPT/HCPCS: 36591; 80048; 81003; 81015; 85025; 96374; 96375; 96376; 99282; 99284; J1170; J1885

== ENCOUNTER → 2019-04-09 14:39 | Outpatient (CLI) | payer OTHER, SELFPAY | PROVIDERS: PCP Family Medicine; Visit Provider Family Medicine | DX: N20.0 Calculus of kidney (principal) | CPT/HCPCS: 82365 ==

== ENCOUNTER → 2019-07-24 09:38 | Outpatient (CLI) | payer OTHER, SELFPAY ==
[2019-07-24 09:58] LABS: Semen Sperm Prescence Post-Vas Present (ABSENT)
== END ==
PROVIDERS: PCP Family Medicine; Visit Provider Family Medicine
DX: Z98.52 Vasectomy status (principal)
CPT/HCPCS: 89321

== ENCOUNTER → 2019-09-01 13:59 | Outpatient (CLI) | payer SELFPAY ==
[2019-09-01 16:13] LABS: Semen Sperm Prescence Post-Vas Absent (ABSENT)
== END ==
PROVIDERS: PCP Family Medicine; Visit Provider Family Medicine
DX: Z30.2 Encounter for sterilization (principal)
CPT/HCPCS: 89321

== ENCOUNTER → 2020-04-20 07:58 | Outpatient (CLI) | payer SELFPAY ==
[2020-04-20 08:48] LABS: Alanine Aminotransferase 17 IU/L (<50); Albumin 4.7 g/dL (3.5-5.0); Alkaline Phosphatase 60 U/L (38-126); Aspartate Aminotransferase 23 IU/L (17-59); Bilirubin Total 0.9 mg/dL (0.2-1.3); Bilirubin Unconjugated 0.8 mg/dL (0.0-1.1); Globulin 2.4 g/dL (1.7-4.1); HEMOLYSIS < 15 (0-50); Total Protein 7.1 g/dL (6.3-8.2)
== END ==
PROVIDERS: PCP Family Medicine; Referring Provider Family Medicine; Visit Provider Family Medicine
DX: R53.83 Other fatigue (principal)
CPT/HCPCS: 36415; 80076; 84443

== ENCOUNTER → 2022-05-24 10:02 | Outpatient (CLI) | payer SELFPAY ==
--- NOTE | 2022-05-24 10:03 | DI.RAD.S_ITS ---
PROCEDURE: XR KUB INDICATIONS: rule out remaining kidney stones TECHNIQUE: One view of the abdomen acquired. COMPARISON: [facility], CT, CT KIDNEY URETER BLADDER (KUB), 03/29/2019, 17:05. FINDINGS: Surgical changes and devices: None. Bowel: Bowel gas pattern is normal. Soft tissues: There is a 3 mm round calcification projecting over the left renal shadow. Otherwise, no other abdominal calcifications identified. Visualized solid organ contours appear normal in size. Bones: No suspicious bony lesions. IMPRESSION: Abdomen without acute radiographic abnormalities. A 3 mm calcification projecting over the left renal shadow compatible with a renal stone. This correlates with previously seen left renal stone which is not demonstrated significant interval change in size. No suspicious calcifications noted in the region of the previously described distal right ureteral stone and has presumably passed. Dictated by: Andreas Bailon M.D. on 05/24/2022 at 11:51 Approved by: Andreas Bailon M.D. on 05/24/2022 at 11:55
== END ==
PROVIDERS: PCP Family Medicine; Referring Provider Family Medicine; Visit Provider Family Medicine
DX: Z87.442 Personal history of urinary calculi (principal)
CPT/HCPCS: 74018

== ENCOUNTER 2023-05-06 11:46 | Emergency (ER) | payer SELFPAY ==
[2023-05-06 11:50] VITALS: BP 144/68; PULSE 69; RESP 22; TEMP 36.2; O2SAT 100; BMI 22.9
--- NOTE | 2023-05-06 12:00 | ED_ITS ---
HPI - General Adult General Chief complaint: Abdominal Pain Stated complaint: possible kidney stones Time Seen by Provider: 05/06/23 11:59 Source: patient Mode of arrival: Ambulatory Limitations: no limitations History of Present Illness HPI narrative: 43-year-old male who is here for evaluation of left-sided flank pain. He has had a kidney stone in the past and he states that approximately 0800 hours this morning had a sudden onset of left-sided flank pain that feels just like his prior stone. Has also had vomiting. No fevers. Related Data Previous Rx's Medication Instructions Recorded hydrocodone 5 mg-acetaminophen 325 1 tab PO Q4-6H PRN pain #10 tabs 05/06/23 mg tablet ondansetron 4 mg disintegrating 4 mg PO Q6H PRN nausea and 05/06/23 tablet vomiting #14 tabs Allergies Allergy/AdvReac Type Severity Reaction Status Date / Time No Known Drug Allergies Allergy Verified 05/06/23 11:59 Review of Systems Constitutional Constitutional: Reports system reviewed and no additional complaints, except as documented Musculoskeletal Musculoskeletal: Reports system reviewed and no additional complaints, except as documented Integumentary/Breasts Skin/Breast: Reports system reviewed and no additional complaints, except as documented Neurologic Neurologic: Reports system reviewed and no additional complaints, except as documented Patient History Medical History (Updated 05/06/23 @ 15:04 by Jose G San DO) Ankle pain (2014) Chronic back pain (1999) Eczema (~1989) Shoulder pain (2001) Surgical History Anesthesia History of umbilical hernia repair (10/2012) Status post hernia repair Family History Mother Cancer Social History marital status: Smoking Status: Never smoker alcohol intake: current substance use type: does not use Smoking Status: Never smoker alcohol intake frequency: 0-2 drinks per day Substance Use Type: does not use Exam Initial Vital Signs Initial Vital Signs: Vital Signs Temperature 97.2 F L 05/06/23 11:50 Pulse Rate 69 05/06/23 11:50 Respiratory Rate 22 05/06/23 11:50 Blood Pressure 144/68 H 05/06/23 11:50 Pulse Oximetry 100 05/06/23 11:50 Oxygen Delivery Method Room Air 05/06/23 11:50 Const General: cooperative and No ill appearing HENPR Head: normal to inspection and normocephalic Resp Effort & Inspection: normal respiratory effort Cardio Rate: regular rate Neuro General: patient alert, patient awake and moves all extremities Extrem Other: No gross deformities Course Orders Ordered: ED Orders 05/06/23 12:01 Complete Blood Count AUTO DIFF Stat Comprehensive Metabolic Panel Stat Lipase Stat 05/06/23 13:22 Urinalysis and Microscopic Stat 05/06/23 14:04 CT kidney ureter bladder (KUB) Stat Ondansetron HCl (Ondansetron 4 Mg Odt) 4 mg PO NOW PRN PRN Reason: Nausea And Vomiting Ondansetron HCl (Ondansetron 4 Mg/2 Ml Inj) 4 mg IV NOW PRN PRN Reason: Nausea And Vomiting Last Admin: 05/06/23 12:10 Dose: 4 mg Documented By: LUIS FELIPE Discontinued Medications Hydromorphone HCl (Hydromorphone 1 Mg Inj) 1 mg IV NOW ONE Stop: 05/06/23 12:01 Last Admin: 05/06/23 12:10 Dose: 1 mg Documented By: LUIS FELIPE Lidocaine HCl 5 ml/ Sodium (Chloride) 55 mls @ 330 mls/hr IV NOW ONE Stop: 05/06/23 12:20 Ketorolac Tromethamine (Ketorolac 30 Mg/Ml Vial) 30 mg IV NOW ONE Stop: 05/06/23 12:01 Last Admin: 05/06/23 12:10 Dose: 30 mg Documented By: LUIS FELIPE Vital Signs Vital signs: Vital Signs - 8 hr 05/06/23 11:50 05/06/23 13:52 05/06/23 13:52 Temperature 97.2 F L Pulse Rate 69 72 Respiratory Rate 22 Blood Pressure 144/68 H 113/67 Pulse Oximetry 100 100 Oxygen Delivery Method Room Air 05/06/23 14:00 05/06/23 14:00 Temperature Pulse Rate 74 Respiratory Rate Blood Pressure 123/84 Pulse Oximetry 99 Oxygen Delivery Method Medical Decision Making Medical Records Medical records reviewed: Yes I reviewed the patient's medical records. Lab Data Lab results reviewed: Yes I reviewed the patient's lab results. 05/06/23 12:01 05/06/23 12:01 Labs: Lab Results 0905/06/23 05/06/23 Range/Units 12:01 12:01 13:22 WBC 13.9 H (4.5-11.0) X10^3/uL RBC 4.91 (4.5-5.9) X10^6/uL Hgb 14.8 (13.5-17.5) g/dL Hct 43.2 (41-53) % MCV 88.1 (80-100) fL MCH 30.2 (26-34) PG MCHC 34.3 (30-36) % RDW 12.5 (11.6-14.8) % Plt Count 178 (150-400) X10^3/uL Neut % (Auto) 82.6 H (50-75) % Lymph % (Auto) 11.0 L (25-40) % [place] % (Auto) 5.7 (3-14) % Eos % (Auto) 0.5 L (2-4) % Baso % (Auto) 0.2 (0-2) % Neut # (Auto) 48123 H (0348-6119) /uL Lymph # (Auto) 1500 (3778-0666) /uL [place] # (Auto) 800 (0-900) /uL Eos # (Auto) 100 (0-450) /uL Baso # (Auto) 0 (0-100) /uL Sodium 134 L (137-145) mmol/L Potassium 3.4 (3.4-5.1) mmol/L Chloride 100 (98-107) mmol/L Carbon Dioxide 22 (22-32) mmol/L BUN 17 (9-20) mg/dL Creatinine 0.89 (0.66-1.25) mg/dL Estimated GFR > 60 (>60) mL/min BUN/Creatinine Ratio 19.1 (6-22) Glucose 134 H (70-100) mg/dL Calcium 9.6 (8.4-10.2) mg/dL Total Bilirubin 1.1 (0.2-1.3) mg/dL AST 24 (17-59) IU/L ALT 21 (<50) IU/L Alkaline Phosphatase 67 (38-126) U/L Total Protein 7.4 (6.3-8.2) g/dL Albumin 4.7 (3.5-5.0) g/dL Globulin 2.7 (1.7-4.1) g/dL Albumin/Globulin Ratio 1.7 (1.0-2.8) Lipase 63 (23-300) U/L Urine Color Yellow Urine Appearance Clear Urine pH 8.5 H (4.5-8.0) Ur Specific [place] 1.020 (1.000-1.035) Urine Protein Trace H (Negative) Urine Glucose (UA) Negative (Negative) g/dL Urine Ketones 3+ H (NEGATIVE) Urine Occult Blood 3+ H (Negative) Urine Nitrate Negative (Negative) Urine Bilirubin Negative (NEGATIVE) Urine Urobilinogen 1.0 (0.2) E.U./dL Ur Leukocyte Esterase Negative (NEGATIVE) Urine RBC 10-30/hpf H (0-5/HPF) Urine WBC 0-1/hpf (0-5/HPF) Ur Squamous Epith Cells None seen (0-5/HPF) Urine Bacteria Few (2-10) H (None) Ur Culture Indicated? Cult not indicated Urine Dip Bedside Urine Glucose Negative Bedside Urine Bilirubin - Negative Bedside Urine Ketone +++ 80 Urine Specific [place] 1.010 Bedside Urine Occult Blood +++ Bedside Urine pH 8.5 Bedside Urine Protein +/- 15 Bedside Urine Urobilinogen - Negative Bedside Urine Nitrite - Negative Bedside Urine Leukocytes - Negative Esterase Point of care testing: Urine Dip Bedside Urine Glucose Negative Bedside Urine Bilirubin - Negative Bedside Urine Ketone +++ 80 Urine Specific [place] 1.010 Bedside Urine Occult Blood +++ Bedside Urine pH 8.5 Bedside Urine Protein +/- 15 Bedside Urine Urobilinogen - Negative Bedside Urine Nitrite - Negative Bedside Urine Leukocytes - Negative Esterase Imaging Data CT scan - abdomen/pelvis: Radiologist's Impression: PROCEDURE:? CT KIDNEY URETER BLADDER (KUB) ? INDICATIONS:? eval for L sided stone ? TECHNIQUE:? Axial sections were acquired from the lung bases to the pubic symphysis.? Mcintyre l and sagittal reformats were performed.? For radiation dose reduction, the following was used: ?automated exposure control, adjustment of mA and/or kV according to patient size.? ? COMPARISON:? [facility], CT, CT KIDNEY URETER BLADDER (KUB), 03/29/2019, 17:05. ? FINDINGS:? Image quality:? Excellent.? ? Lung bases:? Unremarkable.? ? Heart:? No significant findings. ? URINARY: Right Kidney: ? No stones or hydronephrosis.? Right Ureter:? No hydroureter.? ? Left Kidney: ? No stones or hydronephrosis. Left Ureter:? Mild left ureteral dilatation.? ? Bladder:? Normal wall thickness.? 4 mm diameter calculus at the left ureterovesical junction. ? ABDOMEN: Liver:? Unremarkable.? ? Gallbladder:? Unremarkable.? ? Biliary ducts:? Unremarkable.? ? Pancreas:? Unremarkable.? ? Spleen:? Unremarkable.? ? Adrenal Glands:? Unremarkable.? ? ? Stomach and Bowel:? Stomach, small bowel loops, and colon are unremarkable.? Appendix not seen.? No evidence of appendicitis. Peritoneum:? No abnormal intraperitoneal fluid.? No free air.? ? Ventral Wall: ? No hernia.? Abdominal Nodes:? No enlarged retroperitoneal or mesenteric lymph nodes.? Vessels:? Aorta and inferior vena cava are normal in size.? ? PELVIS: Pelvic Organs:? Unremarkable.? ? Pelvic Nodes: Unremarkable. Miscellaneous: No inguinal hernias are seen. ? ? ? Bones:? Unremarkable. ? IMPRESSION:? ? 1. Left ureterovesical junction calculus associated with mild left ureteral dilatation. 2. Appendix not seen.? No evidence of appendicitis.? MDM Narrative Medical decision making narrative: Urinalysis shows no signs of infection. Kidney functions unremarkable. He does have a left-sided 4 mm distal ureteral stone which is consistent with his presenting symptoms. Will treat symptomatically. He was given return precautions and follow-up instructions. He expressed understanding and agreement. Discharge Plan Departure Patient Disposition: Home Clinical Impression: Left ureteral calculus Instructions: DI for Kidney Stones Activity Restrictions/Additional Instructions: Be sure that you are staying hydrated. Take the pain medicine and nausea medication as needed. Return to the emergency department for new or worsening symptoms like we discussed. Prescriptions: New ondansetron 4 mg tablet,disintegrating 4 mg PO Q6H PRN (Reason: nausea and vomiting) Qty: 14 0RF hydrocodone-acetaminophen 5-325 mg tablet 1 tab PO Q4-6H PRN (Reason: pain) Qty: 10 0RF Referrals: Feliberto Rucker MD [Primary Care Provider] - Stand Alone Forms: Patient Portal/API
[2023-05-06] MEDS: ONDANSETRON 4 MG/2 ML INJ IV (12:10)
[2023-05-06] MEDS: HYDROMORPHONE 1 MG INJ IV (12:10)
[2023-05-06] MEDS: KETOROLAC 30 MG/ML VIAL IV (12:10)
[2023-05-06 12:24] LABS: Add Manual Diff / Slide Review NO; Basophils Absolute Auto 0 /uL (0-100); Basophils Percent Auto 0.2 % (0-2); Eosinophils Absolute Auto 100 /uL (0-450); Eosinophils Percent Auto 0.5 % (2-4); Hematocrit 43.2 % (41-53); Hemoglobin 14.8 g/dL (13.5-17.5); Lymphocytes Absolute Auto 1500 /uL (1100-4500); Mean Corpuscular HGB Conc 34.3 % (30-36); Mean Corpuscular Hemoglobin 30.2 PG (26-34); Mean Corpuscular Volume 88.1 fL (80-100); Monocytes Absolute Auto 800 /uL (0-900); Monocytes Percent Auto 5.7 % (3-14); Neutrophils Absolute Auto 11500 /uL (1500-7000); Neutrophils Percent Auto 82.6 % (50-75); Platelet Count 178 X10^3/uL (150-400); Red Blood Cell Count 4.91 X10^6/uL (4.5-5.9); Red Cell Distribution Width 12.5 % (11.6-14.8); White Blood Cell Count 13.9 X10^3/uL (4.5-11.0)
[2023-05-06 12:32] LABS: Alanine Aminotransferase 21 IU/L (<50); Albumin 4.7 g/dL (3.5-5.0); Albumin Globulin Ratio 1.7 (1.0-2.8); Alkaline Phosphatase 67 U/L (38-126); Aspartate Aminotransferase 24 IU/L (17-59); BUN Creatinine Ratio 19.1 (6-22); Bilirubin Total 1.1 mg/dL (0.2-1.3); Blood Urea Nitrogen 17 mg/dL (9-20); Calcium 9.6 mg/dL (8.4-10.2); Carbon Dioxide 22 mmol/L (22-32); Chloride 100 mmol/L (98-107); Estimated Glomerular Filt Rate > 60 mL/min (>60); Globulin 2.7 g/dL (1.7-4.1); Glucose 134 mg/dL (70-100); HEMOLYSIS < 15 (0-50); Lipase 63 U/L (23-300); Potassium 3.4 mmol/L (3.4-5.1); Sodium 134 mmol/L (137-145); Total Protein 7.4 g/dL (6.3-8.2)
[2023-05-06 13:52] VITALS: BP 113/67; PULSE 72; O2SAT 100
[2023-05-06 14:00] VITALS: BP 123/84; PULSE 74; O2SAT 99
[2023-05-06 14:02] LABS: Appearance Urine UA CLEAR; Bilirubin Urine UA NEGATIVE (NEGATIVE); Color Urine UA YELLOW; Glucose Urine UA NEGATIVE (Negative); Ketones Urine UA 3+ (NEGATIVE); Leukocyte Esterase Urine UA NEGATIVE (NEGATIVE); Nitrite Urine UA NEGATIVE (Negative); Occult Blood Urine UA 3+ (Negative); Protein Urine UA TRACE (Negative); pH Urine UA 8.5 (4.5-8.0)
--- NOTE | 2023-05-06 14:04 | DI.CT.S_ITS ---
PROCEDURE: CT KIDNEY URETER BLADDER (KUB) INDICATIONS: eval for L sided stone TECHNIQUE: Axial sections were acquired from the lung bases to the pubic symphysis. Coronal and sagittal reformats were performed. For radiation dose reduction, the following was used: automated exposure control, adjustment of mA and/or kV according to patient size. COMPARISON: [facility], CT, CT KIDNEY URETER BLADDER (KUB), 03/29/2019, 17:05. FINDINGS: Image quality: Excellent. Lung bases: Unremarkable. Heart: No significant findings. URINARY: Right Kidney: No stones or hydronephrosis. Right Ureter: No hydroureter. Left Kidney: No stones or hydronephrosis. Left Ureter: Mild left ureteral dilatation. Bladder: Normal wall thickness. 4 mm diameter calculus at the left ureterovesical junction. ABDOMEN: Liver: Unremarkable. Gallbladder: Unremarkable. Biliary ducts: Unremarkable. Pancreas: Unremarkable. Spleen: Unremarkable. Adrenal Glands: Unremarkable. Stomach and Bowel: Stomach, small bowel loops, and colon are unremarkable. Appendix not seen. No evidence of appendicitis. Peritoneum: No abnormal intraperitoneal fluid. No free air. Ventral Wall: No hernia. Abdominal Nodes: No enlarged retroperitoneal or mesenteric lymph nodes. Vessels: Aorta and inferior vena cava are normal in size. PELVIS: Pelvic Organs: Unremarkable. Pelvic Nodes: Unremarkable. Miscellaneous: No inguinal hernias are seen. Bones: Unremarkable. IMPRESSION: 1. Left ureterovesical junction calculus associated with mild left ureteral dilatation. 2. Appendix not seen. No evidence of appendicitis. Dictated by: Fletcher Arriaza M.D. on 05/06/2023 at 14:28 Approved by: Fletcher Arriaza M.D. on 05/06/2023 at 14:29
[2023-05-06 14:10] LABS: Bacteria Urine Few (2-10); RBC Urine 10-30/HPF (0-5/HPF); WBC Urine 0-1/HPF (0-5/HPF)
[2023-05-06 14:11] LABS: Culture Indicated Urine Cult Not Indicated; Squamous Epithelial Cell Urine None Seen (0-5/HPF)
[2023-05-06 15:15] VITALS: PULSE 78; RESP 18; O2SAT 98
== END 2023-05-06 15:16 | disposition home or self-care (01) ==
PROVIDERS: Emergency Provider Emergency Medicine; PCP Family Medicine
DX: N20.1 Calculus of ureter (principal); Z87.442 Personal history of urinary calculi
CPT/HCPCS: 36415; 74176; 80053; 81001; 81003; 83690; 85025; 96374; 96375; 99284; J1170; J1885; J2405